=== PATIENT | male | born 1985 | race African-American/Black ===

== ENCOUNTER 2016-07-07 12:20 | Emergency (ER) | payer MEDICAID, OTHER ==
--- NOTE | 2016-07-07 16:02 | EDDOCDS ---
Physician Documentation [facility] Name: Kevin Turcios Age: 31 yrs Sex: Male : 1985 Arrival Date: 07/07/2016 Time: 12:20 Bed TR7 Private MD: Duncan Mccracken J Disposition: 07/07/16 15:12 Discharged to Home/Self Care. Impression: Anxiety disorder, unspecified. - Condition is Stable. - Discharge Instructions: Panic Attacks. - Prescriptions for Xanax 0.5 mg Oral Tablet - take 1 tablet by ORAL route Every night As needed MDD: 1 tabs; 10 tablet. - Medication Reconciliation, Local Pharmacy Hours form. - Follow up: Duncan Mccracken; When: 2 - 3 days. - Problem is new. - Symptoms have improved. - Notes: return if worsening symptoms Historical: - Allergies: no known allergies; - Home Meds: 1. Stribild [phone] mg oral tab 1 tab once daily - PMHx: HIV; - PSHx: none; - Social history: Smoking status: Patient uses tobacco products, current every day smoker. No barriers to communication noted, The patient speaks fluent Belgian, Speaks appropriately for age. - Family history: Not pertinent. - : The pt / caregiver states he / she is not on anticoagulants. Home medication list is obtained from the patient. - Exposure Risk Screening:: None identified. Vital Signs: 07/07 12:22 BP 159 / 92; Pulse 102; Resp 16; Temp 98.2(O); Pulse Ox 100% ; Weight 75.75 kg / 167 cmb lbs (M); Height 5 ft. 10 in. (177.80 cm); 15:12 BP 120 / 58; Pulse 87; Resp 18; Temp 98.3; Pulse Ox 99% ; Pain 0/10; jam1 12:22 Body Mass Index 23.96 (75.75 kg, 177.80 cm) cmb MDM: 12:49 REGULAR DIET PLASTIC FLORES+DIET ordered. EDMS 15:25 PSA Outpatient Referrals was scanned into [employer] and attached to record. cas1 15:53 Financial registration complete. lg Signatures: Dispatcher [employer] EDFL Rodrick-Gabi Doherty MD MD ml Johnson, Bruce, JESUS RN Jonathan Rey, Reg Karen Scott lg cas1 Lesli Mata, RN RN mk4 MTDD
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
--- NOTE | 2016-07-09 17:02 | EDDOCDS ---
Physician Documentation [facility] Name: Kevin Turcios Age: 31 yrs Sex: Male : 1985 Arrival Date: 07/07/2016 Time: 12:20 Bed TR7 Private MD: Duncan Mccracken J Disposition: 07/07/16 15:12 Discharged to Home/Self Care. Impression: Anxiety disorder, unspecified. - Condition is Stable. - Discharge Instructions: Panic Attacks. - Prescriptions for Xanax 0.5 mg Oral Tablet - take 1 tablet by ORAL route Every night As needed MDD: 1 tabs; 10 tablet. - Medication Reconciliation, Local Pharmacy Hours form. - Follow up: Duncan Mccracken; When: 2 - 3 days. - Problem is new. - Symptoms have improved. - Notes: return if worsening symptoms Historical: - Allergies: no known allergies; - Home Meds: 1. Stribild [phone] mg oral tab 1 tab once daily - PMHx: HIV; - PSHx: none; - Social history: Smoking status: Patient uses tobacco products, current every day smoker. No barriers to communication noted, The patient speaks fluent Central African, Speaks appropriately for age. - Family history: Not pertinent. - : The pt / caregiver states he / she is not on anticoagulants. Home medication list is obtained from the patient. - Exposure Risk Screening:: None identified. Vital Signs: 07/07 12:22 BP 159 / 92; Pulse 102; Resp 16; Temp 98.2(O); Pulse Ox 100% ; Weight 75.75 kg / 167 cmb lbs (M); Height 5 ft. 10 in. (177.80 cm); 15:12 BP 120 / 58; Pulse 87; Resp 18; Temp 98.3; Pulse Ox 99% ; Pain 0/10; jam1 12:22 Body Mass Index 23.96 (75.75 kg, 177.80 cm) cmb MDM: 12:49 REGULAR DIET PLASTIC FLORES+DIET ordered. EDMS 15:25 PSA Outpatient Referrals was scanned into [employer] and attached to record. cas1 15:53 Financial registration complete. lg 17:03 [facility] Payment Agreement was scanned into [employer] and attached to record. lg 07/08 10:29 T-Sheet-- Draft Copy was scanned into [employer] and attached to record. gb Signatures: Dispatcher [employer] EDGabi Liang MD MD ml Johnson, Bruce, RN RN Brandi Villa, Reg Reg gb Jonathan Suarez, Reg Reg lg Karen Dickens cas1 Lesli Mata, RN RN mk4 The chart was reviewed and I authenticate all verbal orders and agree with the evaluation and treatment provided.Attachments: 17:03 [facility] Payment Agreement lg 07/08 10:29 T-Sheet-- Draft Copy gb Chart Complete MTDD
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
--- NOTE | 2016-07-09 17:02 | EDDOCDS ---
Physician Documentation [facility] Name: Kevin Turcios Age: 31 yrs Sex: Male : 1985 Arrival Date: 07/07/2016 Time: 12:20 Bed TR7 Private MD: Duncan Mccracken J Disposition: 07/07/16 15:12 Discharged to Home/Self Care. Impression: Anxiety disorder, unspecified. - Condition is Stable. - Discharge Instructions: Panic Attacks. - Prescriptions for Xanax 0.5 mg Oral Tablet - take 1 tablet by ORAL route Every night As needed MDD: 1 tabs; 10 tablet. - Medication Reconciliation, Local Pharmacy Hours form. - Follow up: Duncan Mccracken; When: 2 - 3 days. - Problem is new. - Symptoms have improved. - Notes: return if worsening symptoms Historical: - Allergies: no known allergies; - Home Meds: 1. Stribild [phone] mg oral tab 1 tab once daily - PMHx: HIV; - PSHx: none; - Social history: Smoking status: Patient uses tobacco products, current every day smoker. No barriers to communication noted, The patient speaks fluent Mozambican, Speaks appropriately for age. - Family history: Not pertinent. - : The pt / caregiver states he / she is not on anticoagulants. Home medication list is obtained from the patient. - Exposure Risk Screening:: None identified. Vital Signs: 07/07 12:22 BP 159 / 92; Pulse 102; Resp 16; Temp 98.2(O); Pulse Ox 100% ; Weight 75.75 kg / 167 cmb lbs (M); Height 5 ft. 10 in. (177.80 cm); 15:12 BP 120 / 58; Pulse 87; Resp 18; Temp 98.3; Pulse Ox 99% ; Pain 0/10; jam1 12:22 Body Mass Index 23.96 (75.75 kg, 177.80 cm) cmb MDM: 12:49 REGULAR DIET PLASTIC FLORES+DIET ordered. EDMS 15:25 PSA Outpatient Referrals was scanned into [employer] and attached to record. cas1 15:53 Financial registration complete. lg 17:03 [facility] Payment Agreement was scanned into [employer] and attached to record. lg 07/08 10:29 T-Sheet-- Draft Copy was scanned into [employer] and attached to record. gb Signatures: Dispatcher [employer] EDGabi Liang MD MD ml Johnson, Bruce, RN RN Brandi Villa, Reg Reg gb Jonathan Suarez, Reg Reg lg Karen Dickens cas1 Lesli Mata, RN RN mk4 The chart was reviewed and I authenticate all verbal orders and agree with the evaluation and treatment provided.Attachments: 17:03 [facility] Payment Agreement lg 07/08 10:29 T-Sheet-- Draft Copy gb Chart Complete MTDD
== END 2016-07-07 16:02 | disposition home or self-care (01) ==
LOC: M ED 12:20
DX: F41.9 Anxiety disorder, unspecified (principal); B20 Human immunodeficiency virus [HIV] disease; F17.210 Nicotine dependence, cigarettes, uncomplicated; Z79.899 Other long term (current) drug therapy

== ENCOUNTER → 2016-07-28 | Outpatient (REF) | payer OTHER ==
[2016-07-28 12:20] LABS: ALBUMIN/GLOBULIN RATIO 1.43 (1.00-1.93); ALKALINE PHOSPHATASE 133 U/L (45-117); ALT/SGPT 42 U/L (12-78); ANION GAP 7 MEQ/L (8-16); AST/SGOT 36 U/L (15-37); BILIRUBIN,TOTAL 0.6 MG/DL (0.2-1.0); BLOOD UREA NITROGEN 13 MG/DL (7-18); CALCIUM LEVEL 9.2 MG/DL (8.5-10.1); CARBON DIOXIDE LEVEL 28 MEQ/L (21-32); CHLORIDE LEVEL 108 MEQ/L (98-107); CHOLESTEROL LEVEL 135 MG/DL (<200); CREATININE FOR GFR 1.15 MG/DL (0.70-1.30); GLOMERULAR FILTRATION RATE > 60.0 (>60); GLUCOSE, FASTING 91 MG/DL (70-105); POTASSIUM SERUM 4.1 MEQ/L (3.5-5.1); SODIUM LEVEL 143 MEQ/L (136-145); TOTAL PROTEIN 6.8 GM/DL (6.4-8.2); TRIGLYCERIDES LEVEL 35 MG/DL (<150)
[2016-07-30 00:06] LABS: %CD3+CD4+CD8+ 1.1 % (Not Estab.); %CD3+CD4+CD8- 32.7 % (Not Estab.); %CD3+CD4-CD8+ 35.5 % (Not Estab.); %CD3+CD4-CD8- 0.6 % (Not Estab.); ABS CD3+CD4+CD8+ 19 /uL (Not Estab.); ABS CD3+CD4+CD8- 556 /uL (Not Estab.); ABS CD3+CD4-CD8+ 604 /uL (Not Estab.); ABS CD3+CD4-CD8- 10 /uL (Not Estab.); CD4/CD8 NYSDOH RATIO 0.92 (Not Estab.); Eosinophils 3 % (.); HCT 40.8 % (37.5-51.0); HGB 13.9 g/dL (12.6-17.7); Monocytes 5 % (.); Neutrophils 62 % (.); WBC 6.1 x10E3/uL (3.4-10.8)
== END ==
LOC: M SFHCPLAZ 09:31
PROVIDERS: ATTEND Internal Medicine Infectious Disease
DX: B20 Human immunodeficiency virus [HIV] disease (principal); Z11.3 Encounter for screening for infections with a predominantly sexual mode of transmission

== ENCOUNTER → 2016-08-04 | Outpatient (RCR) | payer MEDICAID | END | disposition home or self-care (01) | LOC: M OUTALCOH 07-07 10:18 | PROVIDERS: ATTEND Psychiatry & Neurology Psychiatry | DX: F10.20 Alcohol dependence, uncomplicated (principal) ==

== ENCOUNTER 2016-08-31 14:00 | Outpatient (RCR) | payer MEDICAID | END 2016-09-01 | LOC: M OUTALCOH 14:00 | PROVIDERS: ATTEND Psychiatry & Neurology Psychiatry | DX: F10.20 Alcohol dependence, uncomplicated (principal) ==

== ENCOUNTER 2016-09-28 14:00 | Outpatient (RCR) | payer MEDICAID | END 2016-10-02 | LOC: M OUTALCOH 14:00 | PROVIDERS: ATTEND Psychiatry & Neurology Psychiatry | DX: F10.20 Alcohol dependence, uncomplicated (principal) ==

== ENCOUNTER 2016-10-26 15:30 | Outpatient (RCR) | payer MEDICAID | END 2016-11-01 | LOC: M OUTALCOH 15:30 | PROVIDERS: ATTEND Psychiatry & Neurology Psychiatry | DX: F10.20 Alcohol dependence, uncomplicated (principal) ==

== ENCOUNTER 2016-11-23 08:00 | Outpatient (RCR) | payer MEDICAID | END 2016-12-02 | LOC: M OUTALCOH 08:00 | PROVIDERS: ATTEND Psychiatry & Neurology Psychiatry | DX: F10.20 Alcohol dependence, uncomplicated (principal) ==

== ENCOUNTER → 2016-12-21 | Outpatient (REF) | payer OTHER ==
[2016-12-21 12:47] LABS: ALBUMIN 3.9 GM/DL (3.2-5.2); ALBUMIN/GLOBULIN RATIO 1.22 (1.00-1.93); ALKALINE PHOSPHATASE 126 U/L (45-117); ALT/SGPT 23 U/L (12-78); ANION GAP 5 MEQ/L (8-16); AST/SGOT 18 U/L (15-37); BILIRUBIN,TOTAL 0.4 MG/DL (0.2-1.0); BLOOD UREA NITROGEN 15 MG/DL (7-18); CALCIUM LEVEL 9.1 MG/DL (8.5-10.1); CARBON DIOXIDE LEVEL 30 MEQ/L (21-32); CHLORIDE LEVEL 106 MEQ/L (98-107); CREATININE FOR GFR 1.06 MG/DL (0.70-1.30); GLOMERULAR FILTRATION RATE > 60.0 (>60); GLUCOSE, FASTING 84 MG/DL (70-105); POTASSIUM SERUM 4.6 MEQ/L (3.5-5.1); SODIUM LEVEL 141 MEQ/L (136-145); TOTAL PROTEIN 7.1 GM/DL (6.4-8.2)
[2016-12-23 14:15] LABS: %CD3+CD4+CD8+ 1.2 % (Not Estab.); %CD3+CD4-CD8+ 38.4 % (Not Estab.); %CD3+CD4-CD8- 1.1 % (Not Estab.); ABS CD3+CD4+CD8+ 26 /uL (Not Estab.); ABS CD3+CD4+CD8- 682 /uL (Not Estab.); ABS CD3+CD4-CD8+ 845 /uL (Not Estab.); ABS CD3+CD4-CD8- 24 /uL (Not Estab.); CD4/CD8 NYSDOH RATIO 0.81 (Not Estab.); Eosinophils 5 % (.); HCT 43.2 % (37.5-51.0); Monocytes 4 % (.); Neutrophils 50 % (.); WBC 5.5 x10E3/uL (3.4-10.8)
== END ==
LOC: M SFHCPLAZ 09:30
PROVIDERS: ATTEND Internal Medicine Infectious Disease
DX: B20 Human immunodeficiency virus [HIV] disease (principal)

== ENCOUNTER → 2017-01-01 | Outpatient (RCR) | payer MEDICAID | LOC: M OUTALCOH 12-07 09:32 | PROVIDERS: ATTEND Psychiatry & Neurology Psychiatry | DX: Z13.9 Encounter for screening, unspecified (principal); F10.20 Alcohol dependence, uncomplicated ==

== ENCOUNTER → 2017-06-10 | Outpatient (REF) | payer OTHER ==
[2017-06-10 12:38] LABS: ALBUMIN 4.3 GM/DL (3.2-5.2); ALBUMIN/GLOBULIN RATIO 1.26 (1.00-1.93); ALKALINE PHOSPHATASE 127 U/L (45-117); ALT/SGPT 32 U/L (12-78); ANION GAP 6 MEQ/L (8-16); AST/SGOT 20 U/L (7-37); BILIRUBIN,TOTAL 0.2 MG/DL (0.2-1.0); BLOOD UREA NITROGEN 17 MG/DL (7-18); CARBON DIOXIDE LEVEL 30 MEQ/L (21-32); CHLORIDE LEVEL 107 MEQ/L (98-107); CREATININE FOR GFR 1.08 MG/DL (0.70-1.30); GLOMERULAR FILTRATION RATE > 60.0 (>60); GLUCOSE, FASTING 89 MG/DL (70-105); POTASSIUM SERUM 4.5 MEQ/L (3.5-5.1); SODIUM LEVEL 143 MEQ/L (136-145); TOTAL PROTEIN 7.7 GM/DL (6.4-8.2)
[2017-06-16 14:15] LABS: Eosinophils 3 % (Not Estab.); HCT 44.2 % (37.5-51.0); HGB 15.1 g/dL (13.0-17.7); Monocytes 6 % (Not Estab.); Neutrophils 58 % (Not Estab.); WBC 5.9 x10E3/uL (3.4-10.8)
== END ==
LOC: M SFHCPLAZ 08:36
PROVIDERS: ATTEND Internal Medicine Infectious Disease
DX: B20 Human immunodeficiency virus [HIV] disease (principal)

== ENCOUNTER → 2017-06-15 | Outpatient (CLI) | payer OTHER ==
--- NOTE | 2017-06-15 09:12 | REP ---
MRI cervical spine without contrast: History: Neck pain. No comparison imaging. Technique: Sagittal and axial T1 and T2-weighted scans are acquired in the usual fashion with and without fat saturation. Sequences include spin echo, turbo spin-echo, and STIR imaging sequences. MRI findings: Cervical vertebral body heights are preserved and alignment is normal. Cortical and medullary bone signal intensity is normal. Cervical cord is normal in coarse, caliber and signal intensity on T1 and T2-weighted scans. Craniocervical junction is unremarkable. No extraspinal abnormality is observed. There is mild disc space narrowing at the C5-6 disc level and left posterolateral disc bulging and early uncovertebral spurring is seen producing mild left-sided neural foraminal narrowing at C5-6. No other focal disc protrusion or neural foraminal narrowing is seen. Impression: Early degenerative disc disease at C5-6 with left-sided uncovertebral spurring and mild neural foraminal narrowing. Otherwise negative. Signed by Javier Sánchez MD 06/15/2017 03:57 P
== END ==
LOC: M RAD 07:44
PROVIDERS: ATTEND Internal Medicine Infectious Disease
DX: M50.30 Other cervical disc degeneration, unspecified cervical region (principal)

== ENCOUNTER → 2017-10-07 | Outpatient (REF) | payer SELFPAY, OTHER ==
[2017-10-07 12:11] LABS: ALBUMIN 4.4 GM/DL (3.2-5.2); ALBUMIN/GLOBULIN RATIO 1.19 (1.00-1.93); ALKALINE PHOSPHATASE 146 U/L (45-117); ALT/SGPT 25 U/L (12-78); ANION GAP 7 MEQ/L (8-16); AST/SGOT 21 U/L (7-37); BILIRUBIN,TOTAL 0.8 MG/DL (0.2-1.0); BLOOD UREA NITROGEN 10 MG/DL (7-18); CALCIUM LEVEL 9.4 MG/DL (8.5-10.1); CARBON DIOXIDE LEVEL 29 MEQ/L (21-32); CHLORIDE LEVEL 104 MEQ/L (98-107); CREATININE FOR GFR 1.21 MG/DL (0.70-1.30); GLOMERULAR FILTRATION RATE > 60.0 (>60); GLUCOSE, FASTING 85 MG/DL (70-100); POTASSIUM SERUM 4.3 MEQ/L (3.5-5.1); SODIUM LEVEL 140 MEQ/L (136-145); TOTAL PROTEIN 8.1 GM/DL (6.4-8.2)
[2017-10-09 14:24] LABS: QUANTIFERON GOLD TB Negative (Negative); TB Test (QFT) Antigen 0.02 IU/mL (.); TB Test (QFT) Antigen Minus Ni <0.01 IU/mL (.); TB Test (QFT) Mitogen 6.28 IU/mL (.); TB Test (QFT) Nil 0.03 IU/mL (.)
[2017-10-11 14:11] LABS: %CD4 Pos Lymphs 32.3 % (30.8-58.5); ABS Eosinophils 0.3 x10E3/uL (0.0-0.4); ABS Lymphs 2.1 x10E3/uL (0.7-3.1); ABS Monocytes 0.4 x10E3/uL (0.1-0.9); ABS Neutophils 2.9 x10E3/uL (1.4-7.0); Abs CD4 Helper 678 /uL (359-1519); Abs CD8 Suppres 735 /uL (109-897); CD4/CD8 Ratio 0.92 (0.92-3.72); Eosinophils 5 % (Not Estab.); HCT 44.5 % (37.5-51.0); HGB 15.7 g/dL (13.0-17.7); HIV-1 RNA PCR QUANT 2 LC550285 70 copies/mL (.); HIV-1 RNA PCR QUANT 3 LC550285 1.845 (.); HSV TYPE I IgG SPECIFIC <0.91 index (0.00-0.90); HSV TYPE II IgG SPECIFIC 8.41 index (0.00-0.90); Immature Grans 0 % (Not Estab.); Lymphocytes 37 % (Not Estab.); MCH 33.4 pg (26.6-33.0); MCHC 35.3 g/dL (31.5-35.7); MCV 95 fL (79-97); Monocytes 7 % (Not Estab.); Neutrophils 50 % (Not Estab.); Platelets 212 x10E3/uL (150-379); RDW 13.9 % (12.3-15.4); WBC 5.7 x10E3/uL (3.4-10.8)
== END ==
LOC: M SFHCPLAZ 09:05
DX: B20 Human immunodeficiency virus [HIV] disease (principal); Z11.3 Encounter for screening for infections with a predominantly sexual mode of transmission
CPT/HCPCS: 80053

== ENCOUNTER → 2018-09-26 | Outpatient (REF) | payer OTHER ==
[2018-09-26 12:02] LABS: APPEARANCE, URINE CLEAR (CLEAR); BACTERIA, URINE AUTO NEGATIVE (NEGATIVE); BILIRUBIN, URINE AUTO NEGATIVE (NEGATIVE); BLOOD, URINE BLOOD NEGATIVE (NEGATIVE); COLOR, URINE AMBER (YELLOW); GLUCOSE, URINE (UA) AUTO NEGATIVE (NEGATIVE); KETONE, URINE AUTO NEGATIVE (NEGATIVE); LEUKOCYTE ESTERASE, URINE AUTO NEGATIVE (NEGATIVE); MUCUS, URINE SMALL (NEGATIVE); NITRITE, URINE AUTO NEGATIVE (NEGATIVE); PROTEIN, URINE AUTO NEGATIVE (NEGATIVE); RBC, URINE AUTO 0 /HPF (0-3); SPECIFIC GRAVITY URINE AUTO 1.024 (1.002-1.035); SQUAMOUS EPITHELIAL CELL UR AU 0 /HPF (0-6); WBC, URINE AUTO 6 /HPF (0-3)
[2018-09-26 12:33] LABS: ALT/SGPT 34 U/L (12-78); BILIRUBIN,TOTAL 0.4 MG/DL (0.2-1.0); BLOOD UREA NITROGEN 9 MG/DL (7-18); C REACTIVE PROTEIN QUANTITATIV < 0.30 MG/DL (0.00-0.30); CALCIUM LEVEL 8.7 MG/DL (8.5-10.1); CARBON DIOXIDE LEVEL 33 MEQ/L (21-32); CHLORIDE LEVEL 104 MEQ/L (98-107); CREATININE FOR GFR 1.15 MG/DL (0.70-1.30); GLOMERULAR FILTRATION RATE > 60.0 (>60); GLUCOSE, FASTING 76 MG/DL (70-100); POTASSIUM SERUM 3.8 MEQ/L (3.5-5.1); SODIUM LEVEL 140 MEQ/L (136-145); TOTAL PROTEIN 7.8 GM/DL (6.4-8.2)
[2018-09-26 14:19] LABS: CHLAMYDIA DNA AMPLIFICATION NEGATIVE (NEGATIVE); GC DNA AMPLIFICATION NEGATIVE (NEGATIVE)
[2018-09-26 16:41] LABS: HEPATITIS C VIRUS ABY INDEX 0.1 INDEX (<0.8)
[2018-09-28 00:08] LABS: %CD4 Pos Lymphs 21.5 % (30.8-58.5); ABS Eosinophils 0.1 x10E3/uL (0.0-0.4); ABS Lymphs 2.2 x10E3/uL (0.7-3.1); ABS Monocytes 0.3 x10E3/uL (0.1-0.9); ANA (HEP2) Negative (.); Abs CD4 Helper 473 /uL (359-1519); Abs CD8 Suppres 1144 /uL (109-897); CD4/CD8 Ratio 0.41 (0.92-3.72); Eosinophils 2 % (Not Estab.); HCT 42.5 % (37.5-51.0); HGB 14.4 g/dL (13.0-17.7); Immature Grans 0 % (Not Estab.); Lyme Disease IgG/IgM Antibodie <0.91 ISR (0.00-0.90); Lyme Disease IgM Ab Quantitati <0.80 index (0.00-0.79); Lymphocytes 39 % (Not Estab.); MCH 31.6 pg (26.6-33.0); MCHC 33.9 g/dL (31.5-35.7); MCV 93 fL (79-97); Monocytes 6 % (Not Estab.); Neutrophils 53 % (Not Estab.); Platelets 160 x10E3/uL (150-379); RBC 4.55 x10E6/uL (4.14-5.80); RDW 15.4 % (12.3-15.4); WBC 5.7 x10E3/uL (3.4-10.8)
[2018-09-29 00:09] LABS: CYCLIC CITRULLINATED PEPTIDE 5 units (0-19); HIV-1 RNA PCR QUANT 2 LC550285 50 copies/mL (.); HIV-1 RNA PCR QUANT 3 LC550285 1.699 (.)
== END ==
LOC: M SFHCPLAZ 10:15
PROVIDERS: ATTEND Internal Medicine Infectious Disease
DX: B20 Human immunodeficiency virus [HIV] disease (principal); Z11.3 Encounter for screening for infections with a predominantly sexual mode of transmission; M25.551 Pain in right hip

== ENCOUNTER → 2018-10-07 | Outpatient (REF) | payer OTHER ==
[2018-10-07 13:53] LABS: C REACTIVE PROTEIN QUANTITATIV < 0.30 MG/DL (0.00-0.30); CHOLESTEROL LEVEL 174 MG/DL (<200); HDL CHOLESTEROL 40 MG/DL (>40); LDL CHOLESTEROL 120 MG/DL (<100); NON-HDL-C 134 MG/DL; TRIGLYCERIDES LEVEL 71 MG/DL (<150)
[2018-10-07 14:01] LABS: CORTISOL AM 8.8 UG/DL (4.3-22.4)
[2018-10-11 15:30] LABS: ANA (HEP2) Negative (.); HEMOGLOBIN A 97.7 % (96.4-98.8); HEMOGLOBIN A2 2.3 % (1.8-3.2); HGB SOLUBILITY Negative (Negative)
== END ==
LOC: M SFHCPLAZ 11:00
PROVIDERS: ATTEND Internal Medicine Infectious Disease
DX: M87.052 Idiopathic aseptic necrosis of left femur (principal)

== ENCOUNTER → 2018-10-25 | Outpatient (REF) | payer OTHER ==
[2018-10-25 15:57] LABS: FREE T4 1.06 NG/DL (0.76-1.46); THYROID STIMULATING HORMONE 0.628 uIU/ML (0.358-3.740)
[2018-10-27 14:12] LABS: TESTOSTERONE FREE (DIRECT) 9.2 pg/mL (8.7-25.1)
== END ==
LOC: M SFHCPLAZ 11:34
PROVIDERS: ATTEND Internal Medicine Infectious Disease
DX: N52.9 Male erectile dysfunction, unspecified (principal)

== ENCOUNTER → 2019-02-28 | Outpatient (REF) | payer OTHER ==
[2019-02-28 13:49] LABS: ALBUMIN 4.4 GM/DL (3.2-5.2); ALT/SGPT 24 U/L (12-78); BILIRUBIN,TOTAL 0.6 MG/DL (0.2-1.0); BLOOD UREA NITROGEN 12 MG/DL (7-18); CALCIUM LEVEL 9.3 MG/DL (8.5-10.1); CARBON DIOXIDE LEVEL 32 MEQ/L (21-32); CHLORIDE LEVEL 100 MEQ/L (98-107); CREATININE FOR GFR 1.15 MG/DL (0.70-1.30); GLOMERULAR FILTRATION RATE > 60.0 (>60); GLUCOSE, FASTING 91 MG/DL (70-100); POTASSIUM SERUM 3.8 MEQ/L (3.5-5.1); SODIUM LEVEL 139 MEQ/L (136-145); TOTAL PROTEIN 7.8 GM/DL (6.4-8.2)
[2019-03-04 00:06] LABS: %CD4 Pos Lymphs 34.5 % (30.8-58.5); ABS Eosinophils 0.1 x10E3/uL (0.0-0.4); ABS Lymphs 1.5 x10E3/uL (0.7-3.1); ABS Monocytes 0.4 x10E3/uL (0.1-0.9); Abs CD4 Helper 518 /uL (359-1519); Abs CD8 Suppres 585 /uL (109-897); CD4/CD8 Ratio 0.88 (0.92-3.72); Eosinophils 2 % (Not Estab.); HCT 42.8 % (37.5-51.0); HGB 14.7 g/dL (13.0-17.7); HIV-1 RNA PCR QUANT 2 LC550285 <20 copies/mL (.); Immature Grans 0 % (Not Estab.); Lymphocytes 25 % (Not Estab.); MCH 33.2 pg (26.6-33.0); MCHC 34.3 g/dL (31.5-35.7); MCV 97 fL (79-97); Monocytes 7 % (Not Estab.); Neutrophils 66 % (Not Estab.); Platelets 202 x10E3/uL (150-450); RBC 4.43 x10E6/uL (4.14-5.80); RDW 13.5 % (12.3-15.4)
== END ==
LOC: M SFHCPLAZ 11:02
PROVIDERS: ATTEND Internal Medicine Infectious Disease
DX: B20 Human immunodeficiency virus [HIV] disease (principal)

== ENCOUNTER 2019-03-28 14:59 | Outpatient (RCR) | payer OTHER | END 2019-04-03 | LOC: M PT 14:59 | PROVIDERS: ATTEND Internal Medicine Infectious Disease | DX: Z51.89 Encounter for other specified aftercare (principal); M87.051 Idiopathic aseptic necrosis of right femur ==

== ENCOUNTER → 2019-07-10 | Outpatient (REF) | payer OTHER ==
[2019-07-10 13:52] LABS: APPEARANCE, URINE CLEAR (CLEAR); BACTERIA, URINE AUTO NEGATIVE (NEGATIVE); BILIRUBIN, URINE AUTO NEGATIVE (NEGATIVE); BLOOD, URINE BLOOD NEGATIVE (NEGATIVE); COLOR, URINE YELLOW (YELLOW); GLUCOSE, URINE (UA) AUTO NEGATIVE (NEGATIVE); KETONE, URINE AUTO NEGATIVE (NEGATIVE); LEUKOCYTE ESTERASE, URINE AUTO NEGATIVE (NEGATIVE); NITRITE, URINE AUTO NEGATIVE (NEGATIVE); PROTEIN, URINE AUTO NEGATIVE (NEGATIVE); RBC, URINE AUTO 0 /HPF (0-3); SPECIFIC GRAVITY URINE AUTO 1.015 (1.002-1.035); SQUAMOUS EPITHELIAL CELL UR AU 0 /HPF (0-6); UROBILINOGEN, URINE AUTO 0.2 mg/dL (0.0-2.0); WBC, URINE AUTO 0 /HPF (0-3)
[2019-07-10 14:29] LABS: ALT/SGPT 26 U/L (12-78); BILIRUBIN,TOTAL 0.3 MG/DL (0.2-1.0); BLOOD UREA NITROGEN 12 MG/DL (7-18); CALCIUM LEVEL 9.6 MG/DL (8.5-10.1); CARBON DIOXIDE LEVEL 29 MEQ/L (21-32); CHLORIDE LEVEL 100 MEQ/L (98-107); CREATININE FOR GFR 1.19 MG/DL (0.70-1.30); GLOMERULAR FILTRATION RATE > 60.0 (>60); GLUCOSE, FASTING 68 MG/DL (70-100); POTASSIUM SERUM 4.8 MEQ/L (3.5-5.1); SODIUM LEVEL 138 MEQ/L (136-145); TOTAL PROTEIN 7.9 GM/DL (6.4-8.2)
[2019-07-10 15:15] LABS: CHLAMYDIA DNA AMPLIFICATION NEGATIVE (NEGATIVE); GC DNA AMPLIFICATION NEGATIVE (NEGATIVE)
== END ==
LOC: M SFHCPLAZ 11:30
PROVIDERS: ATTEND Internal Medicine Infectious Disease
DX: B20 Human immunodeficiency virus [HIV] disease (principal)

== ENCOUNTER → 2020-06-20 | Outpatient (REF) | payer OTHER ==
[2020-06-20 14:43] LABS: ALBUMIN 4.2 GM/DL (3.2-5.2); ALT/SGPT 23 U/L (12-78); BILIRUBIN,TOTAL 0.3 MG/DL (0.2-1.0); BLOOD UREA NITROGEN 13 MG/DL (7-18); CALCIUM LEVEL 9.5 MG/DL (8.5-10.1); CARBON DIOXIDE LEVEL 34 MEQ/L (21-32); CHLORIDE LEVEL 105 MEQ/L (98-107); CREATININE FOR GFR 0.99 MG/DL (0.70-1.30); GLOMERULAR FILTRATION RATE > 60.0 (>60); GLUCOSE, FASTING 72 MG/DL (70-100); POTASSIUM SERUM 3.6 MEQ/L (3.5-5.1); SODIUM LEVEL 141 MEQ/L (136-145); TOTAL PROTEIN 7.6 GM/DL (6.4-8.2)
[2020-06-22 04:07] LABS: %CD4 Pos Lymphs 30.3 % (30.8-58.5); ABS Basophils 0.1 x10E3/uL (0.0-0.2); ABS Eosinophils 0.2 x10E3/uL (0.0-0.4); ABS Lymphs 3.2 x10E3/uL (0.7-3.1); ABS Monocytes 0.4 x10E3/uL (0.1-0.9); ABS Neutophils 5.9 x10E3/uL (1.4-7.0); Abs CD4 Helper 970 /uL (359-1519); Abs CD8 Suppres 1408 /uL (109-897); CD4/CD8 Ratio 0.69 (0.92-3.72); Eosinophils 2 % (Not Estab.); HCT 39.1 % (37.5-51.0); HIV-1 RNA PCR QUANT 2 LC550285 <20 copies/mL (.); Immature Grans 0 % (Not Estab.); Lymphocytes 32 % (Not Estab.); MCH 33.8 pg (26.6-33.0); MCHC 35.8 g/dL (31.5-35.7); MCV 94 fL (79-97); Monocytes 4 % (Not Estab.); Neutrophils 61 % (Not Estab.); Platelets 211 x10E3/uL (150-450); RBC 4.14 x10E6/uL (4.14-5.80); RDW 13.2 % (11.6-15.4); WBC 9.9 x10E3/uL (3.4-10.8)
== END ==
LOC: M SFHCPLAZ 12:11
PROVIDERS: ATTEND Internal Medicine Infectious Disease
DX: B20 Human immunodeficiency virus [HIV] disease (principal)

== ENCOUNTER → 2020-06-20 | Outpatient (CLI) | payer OTHER, MEDICAID ==
--- NOTE | 2020-06-20 14:28 | REPPI ---
INDICATION: M25.511 ACUTE PAIN OF RIGHT SHOULDER. COMPARISON: None. TECHNIQUE: Three views. FINDINGS: Mineralization is normal. The acromioclavicular and glenohumeral articulations are unremarkable. There are no calcifications or foreign bodies. There is no fracture or dislocation. IMPRESSION: Essentially negative right shoulder. <Electronically signed by Eyad Mera > 06/20/20 [id number]
== END ==
LOC: M PLAIMG 12:10
PROVIDERS: ATTEND Internal Medicine Infectious Disease
DX: M25.511 Pain in right shoulder (principal)

== ENCOUNTER 2021-03-11 14:04 | Emergency (ER) | payer OTHER ==
[~2021-03-11] VITALS: Ht 177.8 cm; Wt 63.0 kg
[2021-03-11] MEDS ORDERED: STRITAB2 (17:33)
[2021-03-11] MEDS ORDERED: METAXALONE 400 MG 1/2 TAB PO ONE (18:20)
[2021-03-11] MEDS ORDERED: META400T PO (18:26)
[2021-03-11] MEDS ORDERED: DICL1GEL3 TOP (18:26)
[2021-03-11 19:00] VITALS: BP 115/71
[2021-03-11 19:02] LABS: BASO # 0.1 10^3/uL (0.0-0.2); BASO % 0.8 % (0.0-1.0); EOS # 0.2 10^3/uL (0.0-0.5); HEMATOCRIT 46.6 % (42.0-52.0); HEMOGLOBIN 15.9 g/dl (13.5-17.5); LYMPH # 2.7 10^3/uL (1.5-5.0); LYMPH % 34.6 % (24.0-44.0); MEAN CORPUSCULAR HEMOGLOBIN 33.1 pg (27.0-33.0); MEAN CORPUSCULAR HGB CONC 34.1 g/dl (32.0-36.5); MEAN CORPUSCULAR VOLUME 96.9 fl (80.0-96.0); MONO # 0.4 10^3/uL (0.0-0.8); MONO % 4.5 % (2.0-8.0); NEUTROPHILS # 4.4 10^3/uL (1.5-8.5); NEUTROPHILS % 56.8 % (36.0-66.0); PLATELET COUNT, AUTOMATED 193 10^3/uL (150-450); RED BLOOD COUNT 4.81 10^6/uL (4.30-6.10); WHITE BLOOD COUNT 7.8 10^3/uL (4.0-10.0)
[2021-03-11 19:13] LABS: BLOOD UREA NITROGEN 14 MG/DL (7-18); CALCIUM LEVEL 9.5 MG/DL (8.5-10.1); CARBON DIOXIDE LEVEL 30 MEQ/L (21-32); CHLORIDE LEVEL 104 MEQ/L (98-107); CPK CREATINE PHOSPHOKINASE 125 U/L (39-308); GLOMERULAR FILTRATION RATE > 60.0 (>60); GLUCOSE, FASTING 92 MG/DL (70-100); MAGNESIUM LEVEL 2.1 MG/DL (1.8-2.4); POTASSIUM SERUM 3.9 MEQ/L (3.5-5.1); SODIUM LEVEL 137 MEQ/L (136-145)
[2021-03-11 20:15] LABS: ERYTHROCYTE SEDIMENTATION RATE 6 mm/hr (0-15)
[2021-03-14 00:07] LABS: ANTI TETANUS ANTIBODY 2.99 IU/mL (<0.10); ANTINUCLEAR ANTIBODIES DIRECT Negative (Negative)
== END 2021-03-11 19:00 | disposition home or self-care (01) ==
LOC: M ED 14:04
DX: R68.84 Jaw pain (principal); M62.838 Other muscle spasm; Z21 Asymptomatic human immunodeficiency virus [HIV] infection status; Z79.899 Other long term (current) drug therapy; F17.210 Nicotine dependence, cigarettes, uncomplicated